=== PATIENT | female | born 1960 | race Two or more races ===

== ENCOUNTER 2024-10-12 12:00 | Day surgery (SDC) | payer MEDICAID, SELFPAY ==
--- NOTE | 2024-10-08 13:57 | ESHP_ITS ---
RE: SYDNEY ARTIS : 1960 DATE OF ADMISSION: 10/12/2024 HISTORY OF PRESENT ILLNESS: This patient was seen by me at the [facility] for screening colonoscopy. The patient is a 63-year-old female who was scheduled for colonoscopy. The patient denies any history of rectal bleeding or change in the bowel habits. There is no history of cancer in the family. 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 PAST SURGICAL HISTORY: Consisted of hysterectomy. PHYSICAL EXAMINATION: GENERAL: Revealed a slightly obese female who is weighing about 173 pounds. She is 5 foot 3-1/2 inches tall, weighing 173 pounds. BMI was 30.5. VITAL SIGNS: Temperature was 97.7, pulse was 66, BP was 117/75. HEENT: Head normal. Eyes, ears, nose, throat were normal. Face normal. NECK: Normal. LUNGS: Revealed good breath sounds on both sides. CARDIOVASCULAR: Sinus rhythm with no abnormality like murmurs.. ABDOMEN: Showed a transverse surgical scar in the lower abdomen due to hysterectomy. IMPRESSION: 1. Screening colonoscopy. 2. Hyperlipidemia. 3. Essential hypertension. COURSE OF ACTION: I advised the patient to undergo colonoscopy. This procedure was explained to her in detail using an car repossessor and she is agreeable. DT: 12::17 TT: 13:56:00 Ref: [id number] - TID: [id number]
[2024-10-12] VITALS (11 sets, daily range): BP systolic 110–154; BP diastolic 51–87; PULSE 57–74; RESP 15–23; TEMP 36.5–36.8; O2SAT 93–99; BMI 32.3
[2024-10-12] MEDS: fentaNYL CIT INJ 50 mCg/ML AMP 2ML (ASD USE ONLY) IV (13:18)
[2024-10-12] MEDS: MIDAZOLAM INJ 1 MG/ML VIAL 2 ML (ASD USE ONLY) 2 MG IV (13:24)
--- NOTE | 2024-10-12 13:47 | SUR.PHASEII ---
1335 patient is sleepy and arousable, breathing unlabored, s/p colonoscopy under IV sedation, report received from Mary MCCLOUD
--- NOTE | 2024-10-12 14:56 | SUR.PHASEII ---
1435 patient is awake, alert, breathing unlabored, s/p colonoscopy, patient able to ambulate to bathroom and pass gas, meets discharge criteria, discharge instructions given to patient and esteban, patient discharged home in wheelchair with all belongings
== END 2024-10-12 14:35 | disposition home or self-care (01) ==
PROVIDERS: PCP Registered Nurse; Referring Provider Surgery; Visit Provider Surgery
PROC: 0DBE8ZX Excision of Large Intestine, Via Natural or Artificial Opening Endoscopic, Diagnostic (ICD-10-PCS; CPT 45380; principal; 2024-10-12 13:45)
DX: Z12.11 Encounter for screening for malignant neoplasm of colon (principal); I10 Essential (primary) hypertension; E78.5 Hyperlipidemia, unspecified
CPT/HCPCS: 45378; J2250; J3010

== ENCOUNTER → 2024-11-21 | Outpatient (CLI) | payer MEDICAID, SELFPAY ==
--- NOTE | 2024-11-21 13:00 | XR_ITS ---
Examination: Diagnostic digital mammography, bilateral Computer aided detection 3-D breast Tomosynthesis, bilateral Date and time of exam: November 21, 2024 1312 hrs. Compared to mammograms dating to October 21, 2016 Indications: Breast sonogram February 18, 2024 enlarging 6:00 nodule, 12 x 11 mm left breast Technique: Nonmagnified MLO, CC views of the breasts to been obtained, reconstructed from 3-D Tomosynthesis images. R2 computer aided detection program utilized for evaluation of suspicious masses and/or abnormal calcifications. 3-D Tomosynthesis images obtained. Findings: The breast is heterogeneously dense, which may obscure small masses Skin lesion lower left breast MLO view 10 mm focal asymmetry outer right breast anterior depth Benign calcifications Impression: BI-RADS Category 0: Incomplete: Need additional imaging evaluation 10 mm focal asymmetry outer right breast anterior depth, recommend follow-up spot tomographic views of this asymmetry as well as bilateral breast sonography to complete the workup.
== END | disposition home or self-care (01) ==
PROVIDERS: PCP Registered Nurse; Referring Provider Registered Nurse; Visit Provider Registered Nurse
DX: R92.8 Other abnormal and inconclusive findings on diagnostic imaging of breast (principal); N64.89 Other specified disorders of breast
CPT/HCPCS: 77062; 77066; G0279

== ENCOUNTER → 2025-03-13 | Outpatient (CLI) | payer BC, SELFPAY ==
--- NOTE | 2025-03-13 13:00 | XR_ITS ---
Examination: Breast ultrasound complete, bilateral Date and time of exam: March 13, 2025 1353 hours INDICATIONS: Mammogram November 21, 2024 10 mm focal asymmetry outer right breast anterior depth Technique: Real-time grayscale ultrasonographic imaging bilateral breasts, including all 4 quadrants as well as nipple retroareolar and axillary regions. Findings: Sonographic images right and left breast demonstrated no cystic or solid masses IMPRESSION: BI-RADS Category 1: Negative studies
--- NOTE | 2025-03-13 14:00 | XR_ITS ---
Examination: Diagnostic digital mammography, unilateral, right Computer aided detection 3-D breast Tomosynthesis, unilateral Date and time of exam: March 13, 2025 1003 hours INDICATIONS: Mammogram November 21, 2024 10 mm focal asymmetry outer right breast anterior depth Technique: Nonmagnified MLO, CC views of the right breast have been obtained, reconstructed from 3-D Tomosynthesis images. R2 computer aided detection program utilized for evaluation of suspicious masses and/or abnormal calcifications. 3-D Tomosynthesis images obtained. Findings: The breast is heterogeneously dense, which may obscure small masses No suspicious masses noted Impression: BI-RADS category 2: Benign findings Recommend yearly follow-up mammography
== END | disposition home or self-care (01) ==
PROVIDERS: PCP Registered Nurse; Referring Provider Registered Nurse; Visit Provider Registered Nurse
DX: R92.321 Mammographic fibroglandular density, right breast (principal); N64.89 Other specified disorders of breast
CPT/HCPCS: 76641; 77061; 77065; G0279